=== PATIENT | female | born 2000 | race Hispanic/Latino ===

== ENCOUNTER 2025-02-21 11:05 | Emergency (ER) | payer MEDICAID, OTHER ==
[~2025-02-21] VITALS: Ht 149.9 cm; Wt 86.2 kg
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
[2025-02-21 12:29] VITALS: BP 120/72; PULSE 88; RESP 16; TEMP 98; O2SAT 98
== END 2025-02-21 12:47 | disposition home or self-care (01) ==
LOC: EDH 11:05
DX: M62.838 Other muscle spasm (principal); V89.2XXA Person injured in unspecified motor-vehicle accident, traffic, initial encounter; Y93.89 Activity, other specified; Y92.89 Other specified places as the place of occurrence of the external cause; Y99.8 Other external cause status
CPT/HCPCS: 99283; 96372; J1885

== ENCOUNTER → 2025-05-30 | Emergency (ER) | payer MEDICAID, OTHER ==
[~2025-05-30] VITALS: Ht 149.9 cm; Wt 88.0 kg
[2025-05-30 18:54] VITALS: BP 121/77; PULSE 99; RESP 20; TEMP 99.3
--- NOTE | 2025-05-30 19:00 | ERN ---
ED Note History of Present Illness Stated Complaint: VAGINAL BLEEDING AND PELVIC CRAMPING Chief Complaint: Vaginal Bleeding Time Seen by MD: 18:55 Dictation: PATIENT IS A 24-YEAR-OLD FEMALE COMING IN WITH PELVIC CRAMPING AND VALIUM VAGINAL BLEEDING ONSET WAS YESTERDAY. NO FEVER NO CHILLS NO FLANK PAIN. SHE STATES SHE IS EIGHT WEEKS , JUST SEEN AT [facility] APPROXIMATELY 14 DAYS AGO WITH A AN ULTRASOUND PERFORMED. HER 1ST APPOINTMENT WITH HER DOCTOR'S NOT UNTIL JUNE 16, 2025. Allergies: Coded Allergies: No Known Allergies (Unverified Allergy, Unknown, 02/21/25) Past Medical History Past Medical History: No Pertinent History Surgical History: None : 2 Para: 1 Aborts: 0 RN Note Reviewed/Agreed w/PFSH: Yes Review of System Dictation CONSTITUTIONAL: NEGATIVE EXCEPT FOR HPI HEAD/FACE: NEGATIVE EXCEPT FOR HPI EENT: NEGATIVE EXCEPT FOR HPI RESPIRATORY: NEGATIVE EXCEPT FOR HPI GASTROINTESTINAL/ABDOMINAL: NEGATIVE EXCEPT FOR HPI GENITOURINARY: NEGATIVE EXCEPT FOR HPI VAGINAL BLEEDING/CRAMPING MUSCULOSKELETAL: NEGATIVE EXCEPT FOR HPI INTEGUMENTARY: NEGATIVE EXCEPT FOR HPI NEUROLOGICAL/PSYCH: NEGATIVE EXCEPT FOR HPI HEMATOLOGIC/LYMPHATIC: NEGATIVE EXCEPT FOR HPI ALL SYSTEMS NEGATIVE, EXCEPT NOTED ABOVE. 13 POINT REVIEW OF SYSTEMS ASSESSED AND ALL NEGATIVE EXCEPT FOR ABOVE. Initial Vital Sign VS Vital Signs Date Time Temp Pulse Resp B/P (MAP) Pulse Ox O2 Delivery O2 Flow Rate FiO2 05/30/25 18:54 99.3 99 20 121/77 99 Room Air Physical Exam Dictation VITAL SIGNS REVIEWED GENERAL APPEARANCE: ALERT, ORIENTED X 3, NO ACUTE DISTRESS, WELL DEVELOPED, NOURISHED. OBESE HEAD AND FACE: NON-TRAUMATIC. EYES: PERRL, PINK CONJUNCTIVAS, EYELID NO TRAUMA, ANTERIOR CHAMBER WITH ARCUS SENILIS. EARS: PINNAS INTACT AND NO SIGNS OF TRAUMA OR ERYTHEMA EAR CANALS CLEAR AND NO DISCHARGE TM NO ERYTHEMA NOSE: NO DISCHARGE, NO BLEEDING. OROPHARYNX: MOUTH NORMAL, TONGUE PINK, PHARYNX CLEAR,NO ERYTHEMA, TONSILS NO EXUDATES, NO ABSCESSES NOTED, MUCOUS MEMBRANE MOIST NECK: SUPPLE, NON-TENDER, NO THYROMEGALY, NO MASSES, NO JVD, NO BRUITS BREAST:DEFERRED CHEST:NO TENDERNESS, NO CREPITUS, NO PARADOXICAL MOVEMENT, NO RETRACTIONS LUNGS:CLEAR, WELL-VENTILATED, SYMMETRIC, NO RALES, NO WHEEZING, NO RHONCHI, NO STRIDOR, GOOD BREATH SOUNDS BILATERALLY HEART: REGULAR RATE, REGULAR RHYTHM, NO MURMUR, NO GALLOPS VASCULAR: NO PERIPHERAL EDEMA, ABDOMEN: SOFT, POSITIVE BOWEL SOUNDS, NONDISTENDED, NO GUARDING, NONTENDER, NO REBOUND, NO MASSES NO HEPATOMEGALY, NO SPLENOMEGALY, NO YOUNGBLOOD'S SIGN, NO HERNIAS. RECTAL: DEFERRED GENITAL: DEFERRED NEUROLOGICAL: NORMAL SPEECH, MOTOR FUNCTION INTACT, SENSORY FUNCTION INTACT MUSCULOSKELETAL: NECK NONTENDER, FULL RANGE OF MOTION, BACK NONTENDER, FULL RANGE OF MOTION, EXTREMITIES: NONTENDER, FULL RANGE OF MOTION SKIN: COLOR PINK, DRY, NO TURGOR, NO RASH, NO LACERATIONS, NO ABRASIONS, NO CONTUSIONS. LYMPHATIC: DEFERRED Results (Laboratory/Radiology) Laboratory/Radiology 1921/OB ULTRASOUND DEMONSTRATES VIABLE IUP HEART TONES 153 [id number] Labs Reviewed?: Yes ED Course ED Course Orders Procedure Category Date Status Time Us Ob <14 Weeks US 05/30/25 Taken 18:57 Vital Signs Date Time Temp Pulse Resp B/P (MAP) Pulse Ox O2 Delivery O2 Flow Rate FiO2 05/30/25 18:54 99.3 99 20 121/77 99 Room Air 1925/SPOKE WITH PATIENT AT LENGTH AND MADE HER AWARE THAT THIS IS A THREATENED MISCARRIAGE PELVIC REST WITH NO SEX OF ANY KIND TYLENOL ONLY FOR PAIN CONTINUE VITAMINS AND SEE HER STUDENT SPECIALIST DOCTOR IN THE NEXT ONE TWO DAYS ADDITIONALLY SHE HAS TO FIND OUT WHAT HOSPITAL HE IS GOING TO DELIVER HER AT Medical Decision Making MDM MEDICAL DISCHARGE MAKING BASED ON HPI AND OB ULTRASOUND. PATIENT HAS A VIABLE [id number], HEART TONES 153 PATIENT IS ADVISED NO SEX AND PELVIC REST UNTIL CLEARED BY YOUR STUDENT SPECIALIST DOCTOR TYLENOL ONLY FOR PAIN FIND OUT WHAT HOSPITAL HER DOCTOR WE WILL BE DELIVERING HER BABY AT DX & DISP Disposition: Discharge Departure Impression: Primary Impression: Threatened miscarriage in early Condition: Stable Additional Instructions: FOLLOW-UP WITH PRIMARY CARE PROVIDER IN 1 TO 2 DAYS. TAKE MEDICATIONS DIRECTED HERE IN THE EMERGENCY ROOM. OKAY TO CONTINUE HOME MEDICATIONS UNLESS OTHERWISE DISCUSSED DURING YOUR VISIT IN THE EMERGENCY ROOM TODAY. RETURN TO YOUR NEAREST EMERGENCY ROOM IF SYMPTOMS WORSEN OR IF THERE IS NO IMPROVEMENT. CALL 911 IF YOU NEED IMMEDIATE ASSISTANCE. TAKE TYLENOL [id number] NEEDED AND IF NO CONTRAINDICATIONS ARE PRESENT. INCREASE ORAL HYDRATION. A WOUND CULTURE OR URINE CULTURE WAS ORDERED HERE IN THE EMERGENCY ROOM DEPARTMENT PLEASE FOLLOW-UP WITH PRIMARY CARE PROVIDER AND ADVISE THEM TO GET REPEAT PORTS FROM OUR FACILITY. IF YOU HAD ANY GRACE WRAP/SPLINTS THAT WERE APPLIED HERE, PLEASE DO NOT REMOVE THEM UNTIL YOU SEE YOUR PRIMARY CARE OR SPECIALTY. PELVIC REST AND NO SEX OF ANY KIND UNTIL CLEARED BY YOUR STUDENT SPECIALIST DOCTOR. CONTINUE VITAMINS TYLENOL ONLY FOR PAIN FIND OUT WHAT HOSPITAL YOUR BABY WE WILL BE DELIVERED AT Referrals: SELF,REFERRAL (PCP) Time of Disposition: 19:25 I have reviewed the case, and I agree with, Diagnosis and Plan SERA NAVA May 30, 2025 19:00
--- NOTE | 2025-05-30 19:22 | NUR ---
CALLED FOR PT AT 1915; NO RESPONSE; PT NOT FOUND IN LOBBY.
--- NOTE | 2025-05-30 19:59 | HMCIMG ---
EXAMINATION: OB ULTRASOUND LESS THAN 14 WEEKS. CLINICAL HISTORY: Amenorrhea. Vaginal bleeding. COMPARISON: None. TECHNIQUE: Grayscale and color ultrasound images were obtained utilizing a transabdominal transducer. FINDINGS: LMP: 03/20/2025, 10 weeks and 1 day. The uterus measures 11.0 x 5.5 x 6.5 cm. There is a possible fibroid that measures 1.8 x 1.4 x 2.0 cm in the posterior wall The gestation sac diameter measures 1.5 x 1.3 x 0.8 cm. There is a single, live intrauterine with an approximate gestational age of 6 weeks and 2 days as per the crown-rump length, which measures 0.5 cm, and a regular heart rate of 153 bpm. There is no evidence of subchorionic hemorrhage. The cervix is normal in length, Internal Os closed. EDC (by LMP): 12/25/2025 and EDC (by measurement): 01/20/2026. The right ovary is normal in caliber and measures 2.4 x 1.5 x 3.0 cm. The left ovary is normal in caliber and measures 3.0 x 1.7 x 2.7 cm. There is no free fluid within the pelvis. IMPRESSION: Live intrauterine with an approximate gestational age of 6 weeks and 2 days, and a regular heart rate of 153 bpm. Uterine fibroid. /[place]
== END ==
LOC: EDH 18:49
DX: O20.0 Threatened abortion (principal); O26.891 Other specified pregnancy related conditions, first trimester; R10.20 Pelvic and perineal pain unspecified side; Z3A.01 Less than 8 weeks gestation of pregnancy
CPT/HCPCS: 76801; 99284